=== PATIENT | male | born 1965 | race Caucasian/White ===

== ENCOUNTER 2016-10-28 10:40 | Emergency (ER) | payer BC ==
[~2016-10-28] VITALS: Ht 172.7 cm; Wt 71.0 kg
[~2016-10-28 10:40] MED LIST: IBUPROFEN PO; MUSCLE RELAXANT PO; OXYC-57 PO
[2016-10-28 10:53] VITALS: TEMP 37.6; Ht 172.7 cm; Wt 71.0 kg
[2016-10-28] MEDS ORDERED: IBUP-1050 PO (11:12)
[2016-10-28] MEDS ORDERED: ACET-1256 PO (11:12)
--- NOTE | 2016-10-28 11:45 | DIAGNOSTIC IMAGING REPORT ---
CHEST 2 VIEWS ROUTINE CLINICAL HISTORY: Cough. Congestion. COMPARISON STUDY: Chest radiograph June 09, 2008. FINDINGS: Lung volumes are normal. No consolidation is identified. There is no evidence of pulmonary edema. Cardiomediastinal silhouette is normal. Pulmonary vascularity is normal. IMPRESSION: No acute cardiopulmonary findings. Electronically signed by: Reji Singletary M.D. 10/28/2016 11:43 AM Dictated Date/Time: 10/28/2016 11:43 AM
[2016-10-28] MEDS ORDERED: ALBUTEROL HFA 8 GM INHALER INH ONE (12:15)
[2016-10-28] MEDS ORDERED: DOXY100C PO (12:16)
[2016-10-28 12:31] VITALS: BP 128/94; PULSE 89; O2SAT 97
--- NOTE | 2016-10-28 20:46 | EMERGENCY ROOM VISIT NOTE ---
History First contact with patient: 11:01 Chief Complaint: COUGH Stated Complaint: PNEUMONIA,COUGH, FEVER Nursing Triage Summary: pt here with prod cough x a few days. pt states had pnx in august. pt also c/o a sore throat. History of Present Illness The patient is a 50 year old white male who presents with his , to the Emergency Room with complaints of a productive cough 3 days. He states it is getting worse by the day. He had shaking chills last night and believes he had a high fever. He did not take his temperature. There is a history of pneumonia in August that was treated with antibiotics. Patient states he did recover well. Symptoms returned after running outside in cold air this past week. No nausea, vomiting, diarrhea, or abdominal pain. He has had a sore throat as well as head congestion. Review of Systems REVIEW OF SYSTEM: HEENT: No dizziness, visual problems, hearing loss, or tinnitus. There is no difficulty swallowing and no oral lesions are present. LYMPH: No adenopathy. PULMONARY: No shortness of breath, sputum production or hemoptysis. CARDIOVASCULAR: No chest pain, palpitations, shortness of breath or peripheral edema. GASTROINTESTINAL: No diarrhea, constipation, nausea, vomiting, or abdominal pain. GENITOURINARY: No dysuria, frequency, urgency or nocturia. NEUROLOGIC: No weakness, muscle tenderness, epilepsy or history of neurological problems. MUSCULOSKELETAL: No history of joint tenderness/swelling. No history of arthritis or arthralgias. SKIN: No rashes or lesions. PSYCHIATRIC: No history of depression or mental illness. ENDOCRINE: No history of diabetes, thyroid disorders, or abnormal hair growth. Past Medical/Surgical History Previous surgeries: Back surgery 2009 Medical history: Significant for previous pneumonia Family History Significant for cancer. Mother is . Social History Smoking Status: Never Smoker Smokeless Tobacco Use: No Alcohol Use: occasionally Drug Use: none Marital Status: in relationship Housing Status: lives with family Occupation Status: employed Current/Historical Medications Scheduled Acetaminophen (Tylenol), 1,000 MG PO Q4H Doxycycline Hyclate (Vibramycin), 100 MG PO BID Ibuprofen (Advil), 400 MG PO Q6H Allergies Coded Allergies: Sulfa Drugs (Verified Allergy, Mild, 10/28/16) Physical Exam Vital Signs Date Time Temp Pulse Resp B/P Pulse Ox O2 Delivery O2 Flow Rate FiO2 3/26/17 12:31 89 20 128/94 97 10/28/16 10:53 37.6 94 16 124/80 96 Room Air Physical Exam Gen.: Well-developed, well-nourished, middle-aged white male, in no acute distress. Laying on a bed. Alert and oriented. Skin:Warm and dry with good turgor. No rashes or lesions. No ecchymosis or erythema. The patient is not diaphoretic. No abrasions. HEENT: Normocephalic atraumatic. Eyes PERRLA, EOMI. No conjunctiva or scleral injection. Ears TMs intact bilaterally with good light reflexes. No erythema or bulging. No hemotympanum. Canals are patent. Nares patent bilaterally with left-sided turbinate enlargement. Clear nasal drainage. No epistaxis. Oropharynx without erythema or exudate. Uvula midline, oral mucosa moist. No lesions present. Postnasal drip is visible in the posterior throat. Lymphatics are palpated without anterior or posterior chain enlargement or tenderness. Heart: Heart RRR. No MGR. Peripheral pulses are 2+. Lungs: Lungs are clear to auscultation. No crackles rhonchi or wheezing. Good air movement. The patient is able to take a deep breath. Musculoskeletal: Gross motor function of the upper and lower extremities is intact and unremarkable. Medical Decision & Procedures ER Provider Diagnostic Interpretation: Chest x-ray obtained today was read by radiology as negative for pneumonia. There are some increased lung markings on the right side on my view, perhaps suggesting bronchitis. Medications Administered Medications (Trade) Dose Ordered Sig/Shoaib Route Start Time Stop Time Status Last Admin Dose Admin Albuterol (Ventolin Hfa Inhaler) 2 puffs NOW ONCE INH 10/28/16 12:15 10/28/16 12:16 DC 10/28/16 12:30 2 PUFFS ED Course Patient was educated regarding today's findings. Conservative care measures were discussed. Chest x-ray was obtained. Likelihood of bronchitis was discussed. He was reassured that I do not find any evidence of pneumonia. He has had a documented low-grade temperature as well as subjective higher temperature. Because of this, I will start him on doxycycline 100 mg twice a day 10 days. He was also given an albuterol inhaler with spacer in the ED. He will use 2 puffs every 6 hours while awake for the next several days, and then only as needed. Follow-up with his PCP later this week for reexamination. Maintain hydration. Tylenol and Motrin every 6 hours as needed for fever control/discomfort. Avoid vigorous physical activity until symptoms have fully resolved. Return to the ED for any acute changes or worsening of symptoms. Medical Decision Possibility of pneumonia, viral upper respiratory illness bronchitis, PE, strep pharyngitis, and common cold were considered. Impression Primary Impression: Acute bronchitis Departure Information Dispostion Home / Self-Care Prescriptions Doxycycline Hyclate (VIBRAMYCIN) 100 Mg Cap 100 MG PO BID for 10 Days, #20 CAP Prov: Raul Arnold,P.A. 10/28/16 Forms ALBUTEROL INHALER INSTRUCTIONS, HOME CARE DOCUMENTATION FORM, COOL MIST HUMIDIFIER, MOTRIN USE, TYLENOL USE, IMPORTANT VISIT INFORMATION Patient Instructions Bronchitis Acute, [facility] Additional Instructions Albuterol inhaler-2 puffs every 6 hours while awake 4 days, then every 6 hours as needed Doxycycline 1 pill twice a day 10 days Delsym cough syrup twice a day as needed for cough Tylenol and Motrin every 6 hours as needed for aches/fever Return to the ED or see your PCP for any acute changes or worsening symptoms Problem Qualifiers Primary Impression: Acute bronchitis Bronchitis organism: unspecified organism Qualified Codes: J20.9 - Acute bronchitis, unspecified
== END 2016-10-28 12:31 | disposition home or self-care (01) ==
LOC: C.EDB 10:42 → C.EDC 12:31
DX: J20.9 Acute bronchitis, unspecified (principal)

== ENCOUNTER → 2017-09-06 | Outpatient (CLI) | payer OTHER ==
[~2017-09-06] MED LIST changes: +ACET-1256 PO; +IBUP-1050 PO; -IBUPROFEN PO; -MUSCLE RELAXANT PO; -OXYC-57 PO
--- NOTE | 2017-09-06 11:05 | DIAGNOSTIC IMAGING REPORT ---
ULTRASOUND TESTES AND SCROTUM CLINICAL HISTORY: Right testicular mass. COMPARISON STUDY: No priors. TECHNIQUE: Real-time, grayscale, and color Doppler sonography of the testes and scrotum is performed. Images are reviewed in the transverse and longitudinal planes. FINDINGS: The testes are normal in size and homogeneous in echotexture. The right testis measures 3.7 x 2.0 x 2.8 cm and the left testis measures 3.7 x 2.2 x 2.6 cm. No intratesticular mass is seen. Testicular blood flow is normal and symmetric. Normal Doppler waveforms are identified in both testes. Right epididymis appears mildly enlarged. The right epididymal head measures 1.0 cm in length and the left epididymal head measures 1.0 cm in length. Small bilateral epididymal cysts measure up to 5 mm. Trace bilateral hydroceles are noted. No varicocele is seen. IMPRESSION: 1. Unremarkable sonographic appearance of the testes. No testicular mass is seen. 2. The right epididymis appears mildly enlarged and this likely corresponds to the finding of palpable concern. 3. Small epididymal cysts are noted bilaterally measure up to 5 mm. 4. There are trace bilateral hydroceles. Electronically signed by: Jesús Burleson M.D. 09/06/2017 11:04 AM Dictated Date/Time: 09/06/2017 11:01 AM
== END | disposition home or self-care (01) ==
LOC: C.ULTR 10:05
PROVIDERS: ATTEND Internal Medicine
DX: N50.9 Disorder of male genital organs, unspecified (principal); L72.0 Epidermal cyst